=== PATIENT | male | born 1960 | race Caucasian/White ===

== ENCOUNTER 2019-03-12 06:09 | Day surgery (SDC) | payer BC ==
[2019-03-02 15:55] VITALS: BMI 24.3
[2019-03-12] MEDS ORDERED: ROPIVACAINE HCL 0.5% 30ML VIAL ONE (07:09)
[2019-03-12] MEDS ORDERED: MIDAZOLAM HCL 2 MG/2 ML SINGLE DOSE VIAL ONE (07:09)
[2019-03-12] MEDS ORDERED: EPINEPHrine 1:1,000 1 MG/1 ML - 30ML VIAL (INJECTION) ONE (07:13)
--- NOTE | 2019-03-12 07:29 | OP ---
Operative Note - Note: Operative Date: 03/12/19 Pre-Operative Diagnosis: Left shoulder rotator cuff tear Operation: Left shoulder arthroscopy with rotator cuff repair Post-Operative Diagnosis: Same as Pre-op Surgeon: Martin Bourgeois Air Twist Operator: Socorro Bonilla Anesthesiologist/HISTORIAN DRAMATIC ARTS: Tim Xie Anesthesia: Fractional Operative Report Dictated: Yes
[2019-03-12] MEDS ORDERED: ONDANSETRON 4 MG/2 ML VIAL ONE (07:35)
[2019-03-12] MEDS ORDERED: ceFAZolin SODIUM 1 GM VIAL ONE (07:35)
[2019-03-12] MEDS ORDERED: PROPOFOL 20 ML ONE ×5 (07:35→09:05)
[2019-03-12] MEDS ORDERED: SUCCINYLCHOLINE CHLORIDE 200 MG/10 ML SYRINGE ONE (07:35)
[2019-03-12] MEDS ORDERED: SODIUM CHLORIDE 0.9% P/F 10 ML VIAL IJ ONE (07:35)
[2019-03-12] MEDS ORDERED: DEXAMETHASONE SOD PHOSPHATE 4 MG/1 ML VIAL ONE (08:07)
[2019-03-12] MEDS ORDERED: ePHEDrine SULFATE 50 MG/1 ML AMPULE ONE (08:20)
[2019-03-12 09:32] VITALS: TEMP 97.5
--- NOTE | 2019-03-12 10:27 | OP ---
DATE OF OPERATION: 03/12/2019 PREOPERATIVE DIAGNOSIS: Left shoulder possible labral tear, possible rotator cuff tear, impingement. POSTOPERATIVE DIAGNOSIS: Left shoulder fraying of the subscapularis, partial tearing of the superior labrum, subacromial impingement. PROCEDURE: Left shoulder arthroscopy with debridement of the subscapularis, debridement of the superior labrum and synovitis, bony and soft tissue subacromial decompression, and bursectomy. SURGEON: Scot Funez MD ANODE BUILDER: ADINA Arora, whose skillful assistance was necessary for the safe and timely performance of this procedure. Ms. Bonilla was able to provide limb positioning, retraction, assist in driving the camera, and the bony decompression procedure. ANESTHESIA: Regional. POSTOPERATIVE CONDITION: Stable. COMPLICATIONS: None. INDICATIONS: This is a pleasant 59-year-old gentleman who had been having recurrent shoulder pain. It was refractory to physical therapy, anti-inflammatories, as well as subacromial injection. MRI demonstrated some fray changes of the shoulder without any judit tearing. Treatment options were discussed including continued nonoperative care versus operative care. Operative risks were reviewed in detail including bleeding, infection, neurovascular injury, need for further surgery, postoperative pain and stiffness. We discussed medical risks such as heart attack, stroke, DVT, PE, and . I reviewed that the recovery complications of surgery varied widely depending on which structures may or may not be repaired or debrided during the procedure. I addressed all the patient's questions and concerns. He voiced understanding and elected to proceed. DESCRIPTION OF PROCEDURE: Patient was brought to the operating room after administration of a regional block in the preoperative holding area. He was placed in the beach chair position, careful to pad all the bony prominences and maintain the cervical spine in neutral positioning. The left upper extremity was examined, demonstrating full range of motion. He was then prepped and draped in the usual sterile fashion. A preoperative dose of antibiotics was given, and the usual timeout procedure was performed. The bony landmarks were then marked out. A posterior viewing portal was established with an 11 blade. The arthroscope was passed in the glenohumeral joint. Initially, the arthroscope was passed at the posterior-superior aspect of the joint. The biceps anchor was visualized. There was diffuse fraying about the superior labrum, extending from the 10:30 position to the 1:30 position. There was some synovitis noted along the undersurface of the biceps. There were no significant articular lesions noted on the glenoid surface or the humeral surface. The anterior labrum was visualized to be intact with only some fraying in its mid portion. The inferior labrum and posterior labrum were unremarkable. Examination of the subscapularis demonstrated some fraying about its superior border. Passing the arthroscope back, the biceps was examined. Other than the synovitis noted more towards the medial side, the lateral side appeared unremarkable. The supraspinatus and infraspinatus were examined, demonstrating no rotator cuff tearing. The arthroscope was now passed back into the middle of the joint. An anterior portal was established under spinal needle localization. The superior labrum was freed and found to have partial tearing on its lateral border. However, no instability was noted. Utilizing a shaver as well as electrocautery, this was debrided. Some of the synovitis adjacent was debrided as well. The arthroscope was now passed anterior. The upper border of the subscapularis was debrided. The bone next to the upper border was debrided to allow for a healing bed. The biceps was now drawn into the joint, and no additional pathology was seen on the ring of the biceps. At this point, the excess fluid was withdrawn from the joint. The arthroscope was now passed into the subacromial space. Here, there was extensive thickened bursa. There was some fraying noted more towards the lateral aspect of the subacromial space. Utilizing electrocautery as well as the mechanical shaver, the bursa was debrided. Given that the acromion was hooking down more laterally, a lateral bony decompression was performed. No anterior bony decompression was necessary. The rotator cuff was inspected, and the shoulder was passed throughout a range of motion. No apparent rotator cuff tearing was seen. At this point, the excess fluid was withdrawn from the joint. The portals were then sutured with 3-0 nylon. Sterile dressings were placed. The patient was placed into a sling. He was transferred to recovery room in stable condition. SCOT FUNEZ M.D. [id number]
[2019-03-12 10:58] VITALS: BP 114/74; PULSE 69
== END 2019-03-12 10:40 | disposition home or self-care (01) ==
LOC: FASU 06:09
PROVIDERS: ATTEND Orthopaedic Surgery Sports Medicine
PROC: 0RBK4ZZ Excision of Left Shoulder Joint, Percutaneous Endoscopic Approach (ICD-10-PCS; principal; 2019-03-12 08:25)
DX: S46.012A Strain of muscle(s) and tendon(s) of the rotator cuff of left shoulder, initial encounter (principal); S43.432A Superior glenoid labrum lesion of left shoulder, initial encounter; M75.42 Impingement syndrome of left shoulder; X58.XXXA Exposure to other specified factors, initial encounter; Y93.9 Activity, unspecified; Y92.9 Unspecified place or not applicable
CPT/HCPCS: 94760